=== PATIENT | male | born 1955 | race African-American/Black ===

== ENCOUNTER 2018-08-31 15:59 | Inpatient (IN) | payer MEDICAID ==
[~2018-08-31] VITALS: Ht 177.8 cm; Wt 62.1 kg
[2018-08-31] MEDS ORDERED: KETOROLAC 30MG/ML VIAL IV STA (19:24)
[2018-08-31] MEDS ORDERED: SODIUM CHLORIDE 0.9% 1,000 ML IV ONE (19:24)
[2018-08-31] MEDS ORDERED: ONDANSETRON HCL 4MG/2ML INJ IV STA (19:24)
[2018-08-31] MEDS ORDERED: MORPHINE SULFATE 4 MG/ML CPJ (NOT FOR IM USE) IV STA (19:24)
[2018-08-31 19:43] LABS: HEMATOCRIT. 27.2 % (42.0-52.0); HEMOGLOBIN. 8.7 g/dL (14.0-18.0); MEAN CORPUSCULAR HEMOGLOBIN 24.7 pg (28.0-32.0); MEAN CORPUSCULAR VOLUME 77.3 fL (80.0-94.0); MEAN PLATELET VOLUME 10.1 fl (7.4-10.4); RED BLOOD CELL COUNT 3.52 mill/uL (4.7-6.1); RED CELL DISTRIBUTION WIDTH 26.8 % (11.6-14.6)
[2018-08-31 19:45] LABS: CHLORIDE 101 mEq/L (98-107)
[2018-08-31 19:46] LABS: PLATELET 42 x1000/uL (130-400)
[2018-08-31 19:48] LABS: INR 1.2; PARTIAL THROMBOPLASTIN TIME 32.8 sec (23.4-31.0); PROTHROMBIN TIME 12.1 sec (9.6-11.0)
[2018-08-31 19:51] LABS: ETHANOL BLOOD < 10 mg/dL
[2018-08-31 20:10] LABS: PLATELET ESTIMATE MARKEDLY DECREASED
[2018-08-31 22:31] LABS: CLARITY URINE CLEAR (CLEAR); COLOR URINE ORANGE (YELLOW); KETONES URINE 1+ (NEGATIVE); LEUKOCYTE ESTERASE URINE 1+ (NEGATIVE); NITRITE URINE POSITIVE (NEGATIVE); OCCULT BLOOD URINE NEGATIVE (NEGATIVE); PROTEIN URINE TRACE (NEGATIVE); SPECIFIC GRAVITY URINE 1.024 (1.005-1.030)
[2018-08-31 22:49] LABS: *AMPHETAMINES SCREEN URINE NEGATIVE (NEGATIVE)
[2018-08-31 22:50] LABS: *BARBITURATES SCREEN URINE NEGATIVE (NEGATIVE); *BENZODIAZEPINES SCREEN URINE NEGATIVE (NEGATIVE); *COCAINE SCREEN URINE NEGATIVE (NEGATIVE); METHADONE URINE SCREEN NEGATIVE (NEGATIVE); OPIATES URINE SCREEN PRESUMTIVE POSITIVE (NEGATIVE); PHENCYCLIDINE URINE SCREEN NEGATIVE (NEGATIVE)
[2018-08-31 22:51] LABS: CANNABINOID URINE SCREEN PRESUMTIVE POSITIVE (NEGATIVE)
[2018-09-01] VITALS (7 sets, daily range): BP systolic 99–112; BP diastolic 58–89
[2018-09-01] MEDS ORDERED: FERR-71 MT (01:16)
[2018-09-01] MEDS ORDERED: FOLI-43 MT (01:16)
[2018-09-01] MEDS ORDERED: VIT1TABL77 MT (01:16)
[2018-09-01] MEDS ORDERED: ONDANSETRON HCL 4MG/2ML INJ IV PRN (01:30)
[2018-09-01] MEDS: DEXT 5%/0.45% NACL KCL 20MEQ/L 1,000 ML IV SCH ×2 (04:01→20:00)
[2018-09-01 06:36] LABS: MEAN CORPUSCULAR HEMOGLOBIN 25.1 pg (28.0-32.0); MEAN CORPUSCULAR VOLUME 77.6 fL (80.0-94.0); MEAN PLATELET VOLUME 10.5 fl (7.4-10.4); RED CELL DISTRIBUTION WIDTH 26.1 % (11.6-14.6)
[2018-09-01 06:47] LABS: HEMATOCRIT. 21.7 % (42.0-52.0)
[2018-09-01 08:24] LABS: CHLORIDE 106 mEq/L (98-107)
[2018-09-01 08:30] LABS: AMYLASE 186 IU/L (25-115)
[2018-09-01 08:33] LABS: HDL CHOLESTEROL 8 mg/dL (40-59)
[2018-09-01 08:36] LABS: LDL CHOLESTEROL 42 mg/dL (5-100)
[2018-09-01] MEDS: PANTOPRAZOLE SODIUM 40 MG/VIAL IV SCH (09:07)
[2018-09-01] MEDS: CEFTRIAXONE 1 G PREMIX 50 ML IV SCH (09:16)
[2018-09-01 09:20] LABS: TOTAL IRON BINDING CAPACITY 292 ug/dL (250-450)
[2018-09-01] MEDS: FOLIC ACID 1 MG, THIAMINE HCL 100 MG, MVI, ADULT NO.1 10 ML in DEXTROSE 5% WATER 1,000 ML IV SCH ×8 (12:00→16:18)
[2018-09-01] MEDS: ACETAMINOPHEN 325MG TABLET PO PRN ×2 (12:50→18:18)
[2018-09-01 14:00] LABS: PLATELET ESTIMATE MARKEDLY DECREASED
[2018-09-01 14:02] LABS: PLATELET 34 x1000/uL (130-400)
[2018-09-01] MEDS: FERROUS SULFATE 325MG TABLET PO SCH (18:18)
[2018-09-02] VITALS (10 sets, daily range): BP systolic 90–110; BP diastolic 51–60
[2018-09-02] MEDS: DEXT 5%/0.45% NACL KCL 20MEQ/L 1,000 ML IV SCH ×3 (02:24→12:38)
[2018-09-02] MEDS: ACETAMINOPHEN 325MG TABLET PO PRN (03:16)
[2018-09-02 07:57] LABS: CHLORIDE 102 mEq/L (98-107); MEAN CORPUSCULAR HEMOGLOBIN 25.2 pg (28.0-32.0); MEAN CORPUSCULAR VOLUME 78.4 fL (80.0-94.0); MEAN PLATELET VOLUME 9.8 fl (7.4-10.4); RED CELL DISTRIBUTION WIDTH 25.1 % (11.6-14.6)
[2018-09-02] MEDS: DOCUSATE SODIUM 100MG CAPSULE PO SCH (08:28)
[2018-09-02] MEDS: PANTOPRAZOLE SODIUM 40 MG/VIAL IV SCH (08:28)
[2018-09-02] MEDS: FERROUS SULFATE 325MG TABLET PO SCH ×3 (08:28→18:21)
[2018-09-02] MEDS: CEFTRIAXONE 1 G PREMIX 50 ML IV SCH (08:29)
[2018-09-02 08:36] LABS: NUCLEATED RED BLOOD CELLS 1 /100 WBC
[2018-09-02 08:38] LABS: PLATELET ESTIMATE MARKEDLY DECREASED
[2018-09-02 08:39] LABS: PLATELET 42 x1000/uL (130-400)
[2018-09-02] MEDS: MORPHINE SULFATE 4 MG/ML CPJ (NOT FOR IM USE) IV PRN (18:22)
[2018-09-03] VITALS (7 sets, daily range): BP systolic 99–110; BP diastolic 54–61
[2018-09-03 07:30] LABS: HEMATOCRIT. 24.8 % (42.0-52.0); MEAN CORPUSCULAR HEMOGLOBIN 25.6 pg (28.0-32.0); MEAN CORPUSCULAR VOLUME 79.1 fL (80.0-94.0); RED BLOOD CELL COUNT 3.13 mill/uL (4.7-6.1); RED CELL DISTRIBUTION WIDTH 25.1 % (11.6-14.6)
[2018-09-03 07:45] LABS: CHLORIDE 108 mEq/L (98-107)
[2018-09-03] MEDS: FERROUS SULFATE 325MG TABLET PO SCH ×2 (09:12→17:15)
[2018-09-03] MEDS: CEFTRIAXONE 1 G PREMIX 50 ML IV SCH (09:12)
[2018-09-03] MEDS: PANTOPRAZOLE SODIUM 40 MG/VIAL IV SCH (09:13)
[2018-09-03] MEDS: DOCUSATE SODIUM 100MG CAPSULE PO SCH (09:13)
[2018-09-03 09:19] LABS: MEAN PLATELET VOLUME 9.9 fl (7.4-10.4); PLATELET 60 x1000/uL (130-400)
[2018-09-03 09:21] LABS: PLATELET ESTIMATE DECREASED
[2018-09-03] MEDS: FOLIC ACID 1 MG, THIAMINE HCL 100 MG, MVI, ADULT NO.1 10 ML in DEXTROSE 5% WATER 1,000 ML IV SCH ×4 (09:42)
[2018-09-03] MEDS ORDERED: VANCOMYCIN 1 G PREMIX 200 ML IV SCH (12:45)
[2018-09-03] MEDS: VANCOMYCIN 1250MG in DEXTROSE 5% WATER 250ML IV SCH (17:12)
[2018-09-03] MEDS: DEXT 5%/0.45% NACL KCL 20MEQ/L 1,000 ML IV SCH (22:22)
[2018-09-03] MEDS: NYSTATIN POWDER 15GM TOP SCH (22:23)
[2018-09-04] VITALS: BP 112/69
[2018-09-04] MEDS: VANCOMYCIN 1250MG in DEXTROSE 5% WATER 250ML IV SCH ×2 (02:43→13:01)
[2018-09-04 04:00] VITALS: BP 148/86
[2018-09-04] MEDS: NYSTATIN POWDER 15GM TOP SCH ×2 (05:42→13:01)
[2018-09-04 08:00] VITALS: BP 109/62
[2018-09-04] MEDS: DOCUSATE SODIUM 100MG CAPSULE PO SCH (08:55)
[2018-09-04] MEDS: PANTOPRAZOLE SODIUM 40 MG/VIAL IV SCH (08:55)
[2018-09-04] MEDS: CEFTRIAXONE 1 G PREMIX 50 ML IV SCH (08:55)
[2018-09-04] MEDS: FERROUS SULFATE 325MG TABLET PO SCH ×3 (08:55→18:12)
[2018-09-04] MEDS: MORPHINE SULFATE 4 MG/ML CPJ (NOT FOR IM USE) IV PRN (08:56)
[2018-09-04 12:00] VITALS: BP 110/69
[2018-09-04] MEDS: DEXT 5%/0.45% NACL KCL 20MEQ/L 1,000 ML IV SCH (12:00)
[2018-09-04] MEDS: FOLIC ACID 1 MG, THIAMINE HCL 100 MG, MVI, ADULT NO.1 10 ML in DEXTROSE 5% WATER 1,000 ML IV SCH ×4 (12:00)
[2018-09-04 16:00] VITALS: BP 106/55
== END 2018-09-04 19:00 | disposition home health service (06) | DRG 720 ==
LOC: ER 16:27 → 8WST 22:21 → ENRESERV 23:54
PROVIDERS: ADMIT Internal Medicine; ATTEND Internal Medicine
PROC: 30233N1 Transfusion of Nonautologous Red Blood Cells into Peripheral Vein, Percutaneous Approach (ICD-10-PCS; principal; 2018-09-02)
DX: A41.9 Sepsis, unspecified organism (principal); E43 Unspecified severe protein-calorie malnutrition; D61.818 Other pancytopenia; K85.20 Alcohol induced acute pancreatitis without necrosis or infection; E87.1 Hypo-osmolality and hyponatremia; K86.0 Alcohol-induced chronic pancreatitis; K74.60 Unspecified cirrhosis of liver; R16.0 Hepatomegaly, not elsewhere classified; E88.09 Other disorders of plasma-protein metabolism, not elsewhere classified; N39.0 Urinary tract infection, site not specified; N43.3 Hydrocele, unspecified; N49.2 Inflammatory disorders of scrotum; S31.33XA Puncture wound without foreign body of scrotum and testes, initial encounter; N50.3 Cyst of epididymis; N50.89 Other specified disorders of the male genital organs; F11.10 Opioid abuse, uncomplicated; F12.10 Cannabis abuse, uncomplicated; V19.9XXA Pedal cyclist (driver) (passenger) injured in unspecified traffic accident, initial encounter; Y93.I9 Activity, other involving external motion; Y92.89 Other specified places as the place of occurrence of the external cause; Y99.8 Other external cause status; Z68.1 Body mass index [BMI] 19.9 or less, adult
CPT/HCPCS: 36415; 71045; 74176; 76870; 80048; 80061; 80305; 80320; 82150; 82728; 83540; 83550; 83880; 84484; 86850; 86900; 86920; 93976; 96361; 96374; 96375; 97116; 97162; 97530; 99285; C1893; C9113; J0696; J1885; J2270; J2405; J3370; J3411; J3490; J7030; J7040; J7050; J7060; J7070; P9016; G0480